=== PATIENT | female | born 2005 | race Caucasian/White ===

== ENCOUNTER 2025-08-22 11:30 | Emergency (ER) | payer BC, SELFPAY ==
--- NOTE | 2025-08-22 11:35 | ED.GENADULT ---
HPI - General Adult General Chief complaint: Upper Respiratory Infection Stated complaint: conjestion, cough, sore throat, runny nose Time Seen by Provider: 08/22/25 11:35 Source: patient Mode of arrival: ambulatory Limitations: no limitations History of Present Illness HPI narrative: patient is a 20-year-old female presenting with complaint of URI symptoms. The reported include head congestion, cough, sore throat, runny nose. Symptoms began last night. Reports her boyfriend and sister have similar symptoms and she was with them over the weekend. Treatment initiated prior to arrival includes single dose of DayQuil this morning. No additional complaints. Related Data Allergies Allergy/AdvReac Type Severity Reaction Status Date / Time No Known Allergies Allergy Verified 08/22/25 11:43 Review of Systems Review of Systems: CONSTITUTIONAL: Denies body aches, fever, chills, or sweats. EYES: Denies visual changes, redness, or discharge. ENT: Reports rhinorrhea, congestion, sore throat, denies otalgia. CARDIOVASCULAR: Denies chest pain, palpitations, or edema. RESPIRATORY: reports cough denies dyspnea. GASTROINTESTINAL: Denies abdominal pain, nausea, vomiting, or diarrhea. GENITOURINARY: Denies dysuria or hematuria. SKIN: Denies rash, itching, or wounds. MUSCULOSKELETAL: Denies back pain, joint pain, or myalgia. NEUROLOGIC: Denies headache, numbness, tingling, or weakness. PSYCH: Denies depression or anxiety. All systems reviewed & are unremarkable except as noted in HPI and below PMFSH Surgical History Surgical History (Updated 08/22/25 @ 11:54 by Jacky Glover, KYLE) History of tonsillectomy Exam Narrative: GENERAL: Well-appearing, well-nourished, and in no acute distress. HEAD: Normocephalic, atraumatic. EYES: EOMI. No redness or drainage. Conjunctivae normal. ENT: Mucous membranes pink and moist. Nares clear. No rhinorrhea. TMs normal bilaterally. tonsils are surgically absent. Throat normal Without erythema, edema, exudate, lesions. Uvula midline. NECK: Normal AROM. Supple. No lymphadenopathy. CHEST: No respiratory distress. Clear to auscultation. HEART: Regular rate and rhythm. No murmur appreciated. Normal peripheral pulses. EXTREMITIES: Normal range of motion. SKIN: Warm, dry, no rash. Capillary refill normal. Normal skin turgor. NEURO: No focal deficits. Alert and oriented x3. Gait steady. PSYCH: Normal affect. No signs of depression or anxiety. Course Course Level of Care: Express Care Visit Vital Signs Vital signs: Vital Signs Temperature 97.8 F 08/22/25 11:43 Pulse Rate 89 08/22/25 11:43 Respiratory Rate 18 08/22/25 11:43 Blood Pressure 130/81 08/22/25 11:43 Pulse Oximetry 99 08/22/25 11:43 Temperature 97.8 F 08/22/25 11:43 Pulse Rate 89 08/22/25 11:43 Respiratory Rate 18 08/22/25 11:43 Blood Pressure 130/81 08/22/25 11:43 Pulse Oximetry 99 08/22/25 11:43 Medical Decision Making Vital Signs Vital Signs: Vital Signs Temperature 97.8 F 08/22/25 11:43 Pulse Rate 89 08/22/25 11:43 Respiratory Rate 18 08/22/25 11:43 Blood Pressure 130/81 08/22/25 11:43 Pulse Oximetry 99 08/22/25 11:43 Temperature 97.8 F 08/22/25 11:43 Pulse Rate 89 08/22/25 11:43 Respiratory Rate 18 08/22/25 11:43 Blood Pressure 130/81 08/22/25 11:43 Pulse Oximetry 99 08/22/25 11:43 Discharge Plan Discharge Clinical Impression: Elevated blood pressure reading in office without diagnosis of hypertension Upper respiratory infection Qualifiers: URI type: acute nasopharyngitis (common cold) Qualified Code(s): J00 - Acute nasopharyngitis [common cold] Patient Disposition: Home Condition: Stable Instructions: Antibiotic Form, Cold Symptoms (ED) Additional Instructions: Go straight to ER should your symptoms become worse or should any new symptoms develop Patient Language: Mongolian Follow-up/Referrals: UNKNOWN,DOCTOR [Primary Care Provider] - 08/23/25 Stand Alone Forms: Work/School Release IP Time of Disposition: 11:51
[2025-08-22 11:43] VITALS: BP 130/81; PULSE 89; RESP 18; TEMP 36.6; O2SAT 99
== END 2025-08-22 11:56 | disposition home or self-care (01) ==
PROVIDERS: Emergency Provider Registered Nurse
DX: R03.0 Elevated blood-pressure reading, without diagnosis of hypertension (principal); J00 Acute nasopharyngitis [common cold]
CPT/HCPCS: 99211; G0463